=== PATIENT | female | born 1950 | race Hispanic/Latino ===

== ENCOUNTER 2017-09-24 07:30 | Day surgery (SDC) | payer BC, OTHER, SELFPAY ==
[2017-09-24] MEDS ORDERED: PROPOFOL 200 MG/20 ML VIAL IV ONE (08:33)
[2017-09-24] MEDS ORDERED: LIDOCAINE 1% MPF 5 ML VIAL ONE (08:33)
[2017-09-24] MEDS ORDERED: NA CHLORIDE 0.9% 1,000 ML ONE (09:31)
--- NOTE | 2017-09-25 08:37 | ENDO RPT ---
[address], [address] COLONOSCOPY PROCEDURE REPORT EXAM DATE: 09/24/2017 PATIENT NAME: Maribell Espinoza MR #: [id number] BIRTHDATE: 1950 ATTENDING: Jose C Wei DR STATUS: outpatient JEWELRY REPAIRER: Michael Hall and Cookie Dunaway RN INDICATIONS: The patient is a 67 yr old Female here for a colonoscopy due to anemia, colon cancer screening, and constipation PROCEDURE PERFORMED: Colonoscopy with biopsy MEDICATIONS: Per Anesthesia. ESTIMATED BLOOD LOSS: None CONSENT: The patient understands the risks and benefits of the procedure and understands that these risks include, but are not limited to: sedation, allergic reaction, infection, perforation and/or bleeding. Alternative means of evaluation and treatment include, among others: physical exam, x-rays, and/or surgical intervention. The patient elects to proceed with this endoscopic procedure. DESCRIPTION OF PROCEDURE: During intra-op preparation period all mechanical medical equipment was checked for proper function. Hand hygiene and appropriate measures for infection prevention was taken. Procedure, possible complications, alternatives including, but not limited to possibility of bleeding, perforation, tear, infection, sepsis, need for surgery, need for blood transfusion, were explained to the patient. After the risks, benefits and alternatives of the procedure were thoroughly explained, Informed consent was verified, confirmed and timeout was successfully executed by the treatment team. The patient was placed in the left lateral position. A digital rectal exam was performed and revealed internal hemorrhoids and A digital rectal exam was performed and revealed several skin tags. After appropriate level of anesthesia, the scope was passed. The EC-[id number] ([id number]) endoscope was introduced through the anus and advanced to the cecum, which was identified by both the appendix and ileocecal valve. The quality of the prep was fair. The instrument was then slowly withdrawn as the colon was fully examined. Scope withdrawal time was 10 minutes. COLON FINDINGS: A normal appearing cecum, ileocecal valve, and appendiceal orifice were identified. the ascending, transverse, descending, sigmoid colon, and rectum appeared unremarkable. A random biopsy was performed due to history of constipation. Retroflexed views revealed small hemorrhoids. The scope was then completely withdrawn from the patient and the procedure terminated. ADVERSE EVENTS: There were no complications. IMPRESSIONS: A normal appearing cecum, ileocecal valve, and appendiceal orifice were identified. the ascending, transverse, descending, sigmoid colon, and rectum appeared unremarkable; biopsy was performed RECOMMENDATIONS: 1. avoid NSAIDS for 2 weeks 2. await biopsy results 3. fiber rich diet 4. follow-up: office 2 week(s) RECALL: Return in 10 year(s) for Colonoscopy, pending biopsy results. Jose C Wei DR eSigned: Jose C Wei DR 09/24/2017 8:53 AM cc: CPT CODES: ICD9 CODES: PATIENT NAME: Maribell Espinoza MR#: [id number]
== END 2017-09-24 09:50 | disposition home or self-care (01) ==
LOC: ENDO 07:30
PROVIDERS: ATTEND Surgery
PROC: 0DBF8ZX Excision of Right Large Intestine, Via Natural or Artificial Opening Endoscopic, Diagnostic (ICD-10-PCS; principal; 2017-09-24 08:30)
DX: K59.00 Constipation, unspecified (principal); D64.9 Anemia, unspecified; K64.8 Other hemorrhoids; L91.8 Other hypertrophic disorders of the skin; K21.9 Gastro-esophageal reflux disease without esophagitis; I10 Essential (primary) hypertension; E11.42 Type 2 diabetes mellitus with diabetic polyneuropathy; Z79.4 Long term (current) use of insulin; M19.90 Unspecified osteoarthritis, unspecified site; F32.9 Major depressive disorder, single episode, unspecified; Z91.040 Latex allergy status; Z80.8 Family history of malignant neoplasm of other organs or systems; Z83.3 Family history of diabetes mellitus; Z82.49 Family history of ischemic heart disease and other diseases of the circulatory system; Z82.61 Family history of arthritis
CPT/HCPCS: 82962; 88305; J7030

== ENCOUNTER 2018-07-12 08:15 | Day surgery (SDC) | payer OTHER ==
[~2018-07-12 08:15] MED LIST: CEFOXITIN/SWI 2gm 2 GM/20 ML SYR IV SCH
[2018-07-12] MEDS ORDERED: NA CHLORIDE 0.9% 1,000 ML ONE ×2 (09:40→10:41)
[2018-07-12] MEDS ORDERED: GLYCOPYRROLATE 0.2 MG/ML SYR ONE (09:44)
[2018-07-12] MEDS ORDERED: PROPOFOL 200 MG/20 ML VIAL IV ONE (09:44)
[2018-07-12] MEDS ORDERED: FENTANYL CITR 250 MCG/5 ML ONE (09:45)
[2018-07-12] MEDS ORDERED: BUPIVACA 0.25%/EPI 0.0005% MDV 50 ML VIAL ONE (09:45)
[2018-07-12] MEDS ORDERED: LIDOCAINE 2% MPF 5 ML VIAL ONE (09:45)
[2018-07-12] MEDS ORDERED: ROCURONIUM 50 MG/5 ML VIAL IV ONE (09:46)
[2018-07-12] MEDS ORDERED: NEOSTIGMINE 1 MG/ML -5 ML SYRINGE ONE (09:46)
[2018-07-12] MEDS ORDERED: MIDAZOLAM HCL 2 MG/2 ML INJ ONE (09:48)
--- NOTE | 2018-07-12 11:26 | P.OP ---
Preoperative diagnosis: Cholecystitis Postoperative diagnosis: Cholecystitis Primary procedure: Laparoscopic Exploration Anesthesia: GETA + Local Estimated blood loss: <5cc Specimen: None Findings: Abnormal Anatomy, See Report Complications: None Transferred to: Recovery Room Condition: Good
[2018-07-12] MEDS ORDERED: HYDROCODONE/APAP 5/325 MG TAB ONE (12:47)
--- NOTE | 2018-07-12 22:55 | OP ---
Date of Procedure: 07/12/2018 Surgeon: Jensen Wei MD, Preoperative Diagnosis: Cholecystitis/cholelithiasis. Postoperative Diagnosis: Cholecystitis/cholelithiasis. Procedure Performed: A laparoscopic exploration of gallbladder. Anesthesia: General endotracheal plus local. Estimated Blood Loss: Less than 5 cc. Specimen: None. Findings: 1.The patient has abnormal hepatobiliary anatomy. Upon entry to the abdomen, the gallbladder was no jensen to be quite contracted with a large stone in the fundus. This stone was immobile and fixed in th e fundus of the gallbladder. The gallbladder appeared to be somewhat decompressed and firm. In gilberto tion, it was completely covered with a thick fatty rind and fibroadipose tissue over the anterior alba face. The gallbladder appeared to be quite small compared to normal and in a somewhat unusual anatom ic position. In that, it was normal near the fundus; however, it was very small, with the majority o f the gallbladder being occupied by this large fundic stone. 2.She had a high bifurcation of the cystic duct and common duct. 3.The cystic duct appeared dilated. 4.The cystic artery was identified in its normal anatomic course. However, due to the abnormal loca tion of the common duct, it was draped over the anterior surface of this. Procedure In Detail: After informed consent was obtained, the patient was prepped and draped in the usual sterile fashion after adequate anesthesia was achieved. SCDs were in place. A supraumbilical incision was made after appropriately anesthetizing the skin with 0.25% Marcaine. The skin was sharp ly incised; and a 5-mm, 0-degree optical trocar was introduced in the abdomen without evidence of com plication. Insufflation was obtained to 15 mmHg at this time. The area was inspected. There was no injury to vital structures upon entry into the abdomen. Additional trocar was placed in the epigast jenny region under direct visualization without incidental complication. This 5-mm trocar was then use d for the optical trocar, and the umbilical trocar was then upsized to a 12-mm under direct visualiza tion without evidence of complication. Additional trocar was chosen in the right upper quadrant. Th is was similarly anesthetized and sharply incised, and a 5-mm trocar was introduced in the abdomen wi thout evidence of complication. The patient was then positioned in the head up right-side up positio n, and the gallbladder was inspected. As seen above, the gallbladder was noted to have a somewhat ab normal anatomic appearance. In that, it appeared quite contracted and diminutive in size compared to normal gallbladder appearance. There was a large fundic stone which was fairly immobile and fixed a t this. There did not appear to be any bile or fluid within the gallbladder, and there was no eviden ce of acute inflammatory change to the anterior surface of the gallbladder. However, it was covered with thick fibrofatty tissue predominantly. Starting high on the gallbladder, near the area of the s tone, I used electrocautery near the right side and dissected down to the gallbladder wall; and clyde nuing toward the triangle of Calot, I encountered what appeared to be the cystic duct. Continuing to use both suction wastewater supervisor as well as electrocautery, I dissected out this area and noted that I enc ountered what appeared to be the confluence of the cystic duct and common duct very high on the gallb ladder in an abnormal anatomic position. In that, it appeared to have more of an extrahepatic course than I would anticipate and have experienced with other gallbladders. As such, I called an addition al colleague of rusty, Dr. Dilshad Michael, to come and visualize this as well. I continued skeletoniz ed without clipping or using cautery at this point and simply attempted to visualize the cystic duct. The cystic duct was quite stuck down to the common duct, and a tissue plane could be developed betw een them, but they were in close apposition. Additionally, the cystic duct appeared to be enlarged, and I am unsure if this was in fact the cystic duct as I could not completely dissect its course out to the gallbladder with complete confidence. I had concern that there could be a diving of this duct into the posterior substance of the liver; and therefore, the cystic duct might be coming off in an anterior position, thus being an aberrant right hepatic duct. Continuing to dissect and skeletonize this area carefully without using electrocautery or anything other than gentle blunt dissection, I co ntinued to try to visualize the confluence of the cystic duct to the gallbladder, but could not get a dequate visualization. I did visualize what appeared to be the cystic artery, however, coming off in a somewhat normal anatomic position with the exception of being draped over the common duct at this time to enter the close lymph node which then was attached to the anteromedial surface of the gallbla dder. I then scored the peritoneum circumferentially around the gallbladder to see if I could obtain better visualization, but this was not able to get adequate visualization at this time; and due to t he aberrant anatomy and apparent unusual size and discrepancy with the ultrasound report, I then deci ded that it would be safer to not clip, cut, or continue dissecting any other structures as the anato my could not clearly be defined. I did not also feel that an intraoperative cholangiogram would help serve to make the operation safer. In that, I felt that what appeared to be the common duct was als o apparently in close apposition to the medial wall of the gallbladder, and this course was concernin g to me, and I was worried that a thermal injury could occur by arcing to the common duct, even if th e gallbladder could be adequately visualized at this point. Therefore, I cleansed the area, ensured that there was no additional hemostatic maneuvers required, and observed for any possible injury to t he any of these ducts, which was not appreciated. There was no bile spillage throughout the entire p rocedure, and I therefore decided to abandon the procedure at this time and leave at a laparoscopic e xploration and planned to send her to a hepatobiliary specialist to proceed with the cholecystectomy at that time. The patient tolerated the procedure well without evidence of complication up to this p oint. I then placed the patient in a neutral position, removed the umbilical trocar, and closed the umbilical trocar site with a Edison-Riaz suture passer with 0 Vicryl in an interrupted fashion wi th good approximation of tissues. The remaining 3 trocars were then removed without evidence of comp lication under direct visualization. The abdomen was completely desufflated, and all skin incisions were copiously irrigated and closed with a 4-0 Monocryl in a running fashion. Dermabond was placed o vertop. The patient tolerated the procedure well without evidence of complication and transferred to the PACU in good condition. All counts were correct at the end of the case. RADHA/MARIBEL Voice ID: [id number] Report ID: [id number]
== END 2018-07-12 13:50 | disposition home or self-care (01) ==
LOC: OR 08:15
PROVIDERS: ATTEND Surgery
PROC: 0WJP0ZZ Inspection of Gastrointestinal Tract, Open Approach (ICD-10-PCS; principal; 2018-07-12 10:30)
DX: K80.12 Calculus of gallbladder with acute and chronic cholecystitis without obstruction (principal); I10 Essential (primary) hypertension; E11.42 Type 2 diabetes mellitus with diabetic polyneuropathy; K21.9 Gastro-esophageal reflux disease without esophagitis; M19.90 Unspecified osteoarthritis, unspecified site; F32.9 Major depressive disorder, single episode, unspecified; Z79.4 Long term (current) use of insulin; Z91.040 Latex allergy status; Z83.3 Family history of diabetes mellitus; Z82.49 Family history of ischemic heart disease and other diseases of the circulatory system; Z80.8 Family history of malignant neoplasm of other organs or systems
CPT/HCPCS: 49000; 82962 ×3; J0694; J2250; J2704; J2710; J3010; J7030 ×2

== ENCOUNTER 2021-12-05 13:46 | Emergency (ER) | payer OTHER ==
--- OUTSIDE RECORDS SUMMARY | 2021-12-05 13:49 | XMS REPORT | Continuity of Care Document ---
:1950 Author Organization [facility] t Address [address] [place] [address] Care Team Providers Name Role Phone Meera Masters Attending Clinician Unavailable Joya Attending Clinician Unavailable Korin Attending Clinician Unavailable Miller_S_AH Attending Clinician Unavailable Sher-Mbayo_A_AH Attending Clinician Unavailable Miller_S_AH Admitting Clinician Unavailable Sher-Mbayo_A_AH Admitting Clinician Unavailable Payers Payer Name Policy Type Policy Number Effective Date Expiration Date S [facility] [place] - [id number] 2019 [facility] (MEDICARE REPLACEMENT/ADVANT AGE - HMO) Problems This patient has no known problems. Allergies, Adverse Reactions, Alerts This patient has no known allergies or adverse reactions. Medications This patient has no known medications. Procedures This patient has no known procedures. Encounters Start End Encounter Admission Attending Care Care Encounter Source Date/Time Date/Time Type Type Clinicians Facility Department ID 2021-11-01 Outpatient Masters, Na [facility] [id number] 2 Common 15:40:00 [facility] 2021-07-27 Outpatient Masters, Na [facility] [id number] 2 Common 13:57:04 [facility] 2021-07-27 Outpatient Masters, Na STLMLC ST[facility] [id number] 2 Common 13:53:23 [id number] [facility] 2021-07-27 Outpatient Masters, Na [facility] [id number] 2 Common 13:52:08 [id number] [facility] 2021-07-27 Outpatient Masters, Na [facility] [id number] 2 Common 13:18:44 [id number] [facility] 2021-07-27 Outpatient Masters, Na STLMLC STL[facility]C [id number] 2 Common 13:13:08 [id number] [facility] 2021-07-27 Outpatient Masters, Na STLMLC STL[facility]C [id number] 2 Common 12:52:58 [id number] [facility] 2021-07-27 Outpatient Masters, Na STL[facility]C STL[facility] [id number] 2 Common 12:51:09 [id number] [facility] 2021-07-27 Outpatient Masters, Na STLMLC STL[facility]C [id number] 2 Common 12:48:26 [id number] [facility] 2021-07-27 Outpatient Masters, Na STLMLC STL[facility]C [id number] 2 Common 12:44:38 [id number] [facility] 2021-07-27 Outpatient Masters, Na STLMLC STL[facility]C [id number] 2 Common 12:38:55 [id number] [facility] 2021-07-27 Outpatient Masters, Na STLMLC STL[facility]C [id number] 2 Common 12:36:30 [id number] [facility] 2021-07-27 Outpatient Masters, Na STLMLC STLMLC [id number] 2 Common 12:21:07 [id number] [facility] 2021-07-27 Outpatient Millender, STLMLC STLMLC [id number] Common 11:45:26 Sury [id number] [facility] 2021-07-27 Outpatient Millender, STLMLC STLMLC [id number] Common 11:33:19 Sury 87935 [facility] 2021-07-27 Outpatient Millender, STLMLC STLMLC [id number] Common 11:25:37 Sury [id number] [facility] 2021-07-27 Outpatient Millender, STLMLC STLMLC [id number] Common 11:06:56 Sury 99440 [facility] 2021-07-27 Outpatient Aguada, STLMLC STLMLC [id number] Common 11:06:45 Jacquelin [id number] [facility] 2021-07-27 Outpatient ELISEO Langley [facility] [id number] Common 11:06:01 Jacquelin [id number] [facility] 2021-07-27 Outpatient ELISEO Langley [facility] [id number] Common 10:59:10 Jacquelin [id number] [facility] 2020-12-27 2020-12-27 Outpatient Miller_S_AH VFP VFP [id number] [facility] 05:44:00 05:44:00 [id number] [facility] Pract[facility] 2019-09-11 2019-09-11 Outpatient Sher-Mbayo VFP VFP [id number] [facility] 03:32:00 03:32:00 _A_AH [id number] Family Practic e 2019-09-11 2019-09-11 Outpatient Sher-Mbayo VFP VFP [id number] [facility] 03:32:00 03:32:00 _A_AH [id number] Family Practic e 2019-09-11 2019-09-11 Outpatient Sher-Mbayo VFP VFP [id number] [facility] 03:32:00 03:32:00 _A_AH [id number] Family Practic e 2019-09-11 2019-09-11 Outpatient Sher-Mbayo VFP VFP [id number] [facility] 03:32:00 03:32:00 _A_AH [id number] Family Practic e 2019-08-20 2019-08-20 Outpatient Sher-Mbayo VFP VFP [id number] [facility] 07:21:00 07:21:00 _A_AH [id number] Family Practic e Results This patient has no known results.
--- NOTE | 2021-12-05 14:42 | RAD REPORT ---
EXAM DESCRIPTION: RAD - C Spine Ap/Lat - 12/05/2021 2:31 pm CLINICAL HISTORY: PAIN COMPARISON: No comparisons FINDINGS: Cervical bodies are normal in height and alignment. No fracture or acute bony process seen . Very minimal disc space narrowing present at C5-6 and C6-7. Facet joint degenerative changes are pr esent embg-ex-dkpoldlv degree. There is no prevertebral soft tissue thickening or other suspicious soft tissue finding. IMPRESSION: Cervical spine degenerative changes are present as detailed. Concerns for disc herniation, central canal abnormality or occult bone process can be addressed with MR imaging.
--- NOTE | 2021-12-05 14:45 | RAD REPORT ---
EXAM DESCRIPTION: RAD - Humerus Left - 12/05/2021 2:32 pm CLINICAL HISTORY: Left shoulder pain COMPARISON: None. FINDINGS: No fracture is identified. There is no dislocation or periosteal reaction noted. No AC rj int separation or inferiorly directed spurring. Acromial humeral joint space within range of normal. No abnormal soft tissue calcifications. IMPRESSION: Negative left humerus for acute or significant finding.
--- NOTE | 2021-12-05 14:56 | ER ---
Nurse's Notes [facility] Name: Maribell Espinoza Age: 71 yrs Sex: Female : 1950 Arrival Date: 12/05/2021 Time: 13:51 Bed DIS1 Private MD: Nia Masters Diagnosis: Pain in left arm Presentation: 12/05 14:02 Chief complaint:. Chief complaint: Patient states: Left arm pain and soreness that ww started last or Sunday. Coronavirus screen: Client denies travel out of the [place] in the last 14 days. Ebola Screen: Patient denies travel to an Ebola-affected area in the 21 days before illness onset. Initial Sepsis Screen: Does the patient meet any 2 criteria? No. Patient's initial sepsis screen is negative. Does the patient have a suspected source of infection? No. Patient's initial sepsis screen is negative. Risk Assessment: Do you want to hurt yourself or someone else? Patient reports no desire to harm self or others. Onset of symptoms is unknown. 14:02 Method Of Arrival: Ambulatory ww 14:02 Acuity: RONNA 4 ww Historical: - PMHx: 14:04 Diabetes mellitus; Hypertensive disorder; Hypercholesterolemia; ww - Immunization history:: Adult Immunizations up to date. - Social history:: Smoking status: Patient denies any tobacco usage or history of. Screenin:02 Abuse screen: Denies threats or abuse. Denies injuries from another. Nutritional ww screening: No deficits noted. Tuberculosis screening: No symptoms or risk factors identified. Fall Risk None identified. Assessment: 15:01 General: Appears in no apparent distress. Behavior is cooperative. Pain: Complains of ww pain in left arm. Neuro: Level of Consciousness is awake, alert, obeys commands, Oriented to person, place, time, situation, Moves all extremities. Gait is steady, Speech is normal. Respiratory: Airway is patent Respiratory effort is even, unlabored, Respiratory pattern is regular, symmetrical. Vital Signs: 14:02 BP 153 / 74; Pulse 75; Resp 18; Temp 97.8; Pulse Ox 98% ; Weight 90.72 kg; Height 5 ft. ww 3 in. (160.02 cm); Pain 5/10; 14:02 Body Mass Index 35.43 (90.72 kg, 160.02 cm) ww ED Course: 13:51 Patient arrived in ED. am2 13:51 Nia Masters MD is Private Physician. am2 14:01 [facility]. en 14:01 Ariel Cleary MD is Attending Physician. en 14:04 Triage completed. ww 14:04 Arm band placed on. ww 14:33 C Spine Ap/Lat XRAY In Process Unspecified. EDMS 14:33 Humerus Left XRAY In Process Unspecified. EDMS 14:55 Nia Masters MD is Referral Physician. en 15:02 Patient has correct armband on for positive identification. ww 15:02 No provider procedures requiring assistance completed. No provider procedures requiring ww assistance completed. Patient did not have IV access during this emergency room visit. Administered Medications: No medications were administered Outcome: 14:55 Discharge ordered by . en 15:02 Discharged to home ambulatory. ww 15:02 Condition: stable 15:02 Discharge instructions given to patient, Instructed on discharge instructions, follow up and referral plans. medication usage, safety practices, Demonstrated understanding of instructions, follow-up care, medications, Prescriptions given X 1. 15:02 Patient left the ED. ww Signatures: Dispatcher [employer] EDMS Miranda Maldonado am2 Payal Mcpherson RN RN Tierney Love PA PA en
--- NOTE | 2021-12-05 14:56 | EDPHYS ---
Physician Documentation [facility] Name: Maribell Espinoza Age: 71 yrs Sex: Female : 1950 Arrival Date: 12/05/2021 Time: 13:51 Bed DIS1 Private MD: Nia Masters ED Physician Ariel Cleary HPI: 12/05 14:19 This 71 yrs old Female presents to ER via Ambulatory with complaints of Arm en Pain - left. 14:19 71-year-old female with history of hypertension, diabetes, dyslipidemia presents to ED en with intermittent left arm pain with movement of the last 2 days. Patient reports left upper arm pain when elbow is flexed and she is holding her phone. No numbness, tingling or weakness. She denies radicular pain from the neck. No swelling, deformity. No chest pain, shortness of breath or dyspnea exertion. Historical: - PMHx: 14:04 Diabetes mellitus; Hypertensive disorder; Hypercholesterolemia; ww - Immunization history:: Adult Immunizations up to date. - Social history:: Smoking status: Patient denies any tobacco usage or history of. ROS: 14:19 Constitutional: Negative for fever, chills, and weight loss. en 14:19 Cardiovascular: Negative for chest pain. 14:19 Respiratory: Negative for cough, shortness of breath. 14:19 Abdomen/GI: Negative for abdominal pain, nausea, vomiting, and diarrhea. 14:19 MS/extremity: Positive for Left mid upper arm pain. 14:19 Skin: Negative for rash, swelling. 14:19 Neuro: Negative for numbness, tingling, weakness. 14:19 All other systems are negative. Exam: 14:19 Constitutional: This is a well developed, well nourished patient who is awake, alert, en and in no acute distress. 14:19 Constitutional: The patient appears in no acute distress, alert, awake. 14:19 Eyes: Conjunctiva: exudate, injected. 14:19 ENT: Mouth: Lips: moist, Oral mucosa: pink and intact, moist. 14:19 Cardiovascular: Rate: normal, Rhythm: regular, Pulses: no pulse deficits are appreciated, Heart sounds: normal, no murmur, no rub, no gallop. 14:19 Respiratory: the patient does not display signs of respiratory distress, Respirations: normal, Breath sounds: are clear throughout, no rales, rhonchi, no stridor, no wheezing. 14:19 Abdomen/GI: Inspection: abdomen appears normal, Bowel sounds: normal, in all quadrants, Palpation: abdomen is soft and non-tender, in all quadrants. 14:19 Back: pain, is absent, ROM is normal. 14:19 Musculoskeletal/extremity: ROM: no acute changes, intact in all extremities, full active range of motion, Pulses: noted to be 2+ in the right radial artery and left radial artery, Sensation intact. Full range of motion to bilateral upper and lower extremity. Unable to reproduce discomfort on exam to left forearm. No swelling or palpable cords. Neurovascularly intact. 14:19 Skin: no rash present. Turgor: is good. 14:19 Neuro: Orientation: appropriate for stated age, no acute changes, to person, place \T\ time. Mentation: appropriate for stated age, no acute changes, Sensation: no obvious gross deficits. 14:19 Psych: Behavior/mood is pleasant, cooperative, Affect is calm. Vital Signs: 14:02 BP 153 / 74; Pulse 75; Resp 18; Temp 97.8; Pulse Ox 98% ; Weight 90.72 kg; Height 5 ft. ww 3 in. (160.02 cm); Pain 5/10; 14:02 Body Mass Index 35.43 (90.72 kg, 160.02 cm) ww MDM: 14:19 Differential diagnosis: tendonitis, Cervical radiculopathy, neuropathy, paresthesia. en Data reviewed: vital signs, nurses notes, radiologic studies, and as a result, I will Will get XR of neck and left upper extremity with anticipation of discharge. 14:37 Patient medically screened. en 14:54 ED course: Reviewed imaging.. She does have some degenerative changes in the cervical en spine. Spoke with patient regarding possibility of a cervical radicular component to her pain given that it is positional. Symptoms and exam are not consistent with DVT. Will DC home with mild anti-inflammatories and PCP follow-up. Acute ER return precautions reviewed. 12/05 14:13 Order name: C Spine Ap/Lat XRAY; Complete Time: 14:53 en 12/05 14:13 Order name: Humerus Left XRAY; Complete Time: 14:53 en Administered Medications: No medications were administered Disposition: 17:40 Co-signature as Attending Physician, Ariel Cleary MD. rn Disposition Summary: 12/05/21 14:55 Discharge Ordered Location: Home en Problem: new en Symptoms: are unchanged en Condition: Stable en Diagnosis - Pain in left arm en Followup: en - With: Nia Masters MD - When: As needed - Reason: Worsening of condition Discharge Instructions: - Discharge Summary Sheet en - Musculoskeletal Pain en Forms: - Medication Reconciliation Form en - Thank You Letter en - Antibiotic Education en - Prescription Opioid Use en Prescriptions: - Anaprox DS 550 mg Oral Tablet - take 1 tablet by ORAL route every 12 hours As needed; 20 tablet; Refills: 0, en Product Selection Permitted Signatures: Dispatcher [employer] EDMS Ariel Cleary MD MD rn Wood, Whitney, RN RN ww Newkirk, Elizabeth, PA PA en
[2021-12-05 15:15] VITALS: BP 153/74; TEMP 97.8; O2SAT 98
== END 2021-12-05 15:02 | disposition home or self-care (01) ==
LOC: ER 13:46
DX: M79.602 Pain in left arm (principal); E11.9 Type 2 diabetes mellitus without complications; I10 Essential (primary) hypertension
CPT/HCPCS: 72040; 99283